=== PATIENT | female | born 1960 | race Caucasian/White ===

== ENCOUNTER 2017-02-09 14:35 | Emergency (ER) | payer MEDICARE ==
[~2017-02-09] VITALS: Ht 157.5 cm; Wt 83.9 kg
[~2017-02-09 14:35] MED LIST: ASPIRIN EC81 MG PO; FUROSEMIDE40 MG PO; IRBESARTAN150 MG PO; ISOSORBIDE MONO60 MG PO; METOPROLOL TART50 MG PO; OMEPRAZOLE20 MG PO; SPIRONOLACTONE25 MG PO
[2017-02-09] MEDS ORDERED: MONTELUKAST SOD10 MG PO (14:58)
[2017-02-09] MEDS ORDERED: LORAZEPAM1 MG PO (14:59)
[2017-02-09] MEDS ORDERED: FLUOXETINE HCL10 M1 PO (14:59)
[2017-02-09] MEDS ORDERED: METOLAZONE5 MG PO (14:59)
[2017-02-09] MEDS ORDERED: IPRAT-ALBUT 0.5-3 ML INH (15:00)
[2017-02-09] MEDS ORDERED: PREDNISONE10 MG PO (19:21)
[2017-02-09] MEDS ORDERED: PULMICORT FLE180 MCG INH (19:29)
[2017-02-09] MEDS ORDERED: PULMICORT0.5 MG/2 M INH (19:29)
--- NOTE | 2017-02-10 07:41 | EKG ---
[facility] [address] [facility] [place] [address] Signed Normal sinus rhythm Normal ECG No previous ECGs available Confirmed by AI ALCANTARA MD ([id number] on 02/10/2017 7:41:35 AM Electronically Signed By: AI ALCANTARA MD 02/10/17 0741 PATIENT NAME: DONNELLVANESSA Electrocardiogram DATE OF : 64 PHYSICIAN: AI ALCANTARA MD REPORT #: [id number] REPORT IS CONFIDENTIAL AND NOT TO BE RELEASED WITHOUT AUTHORIZATION
== END 2017-02-09 19:51 | disposition home or self-care (01) ==
LOC: ED 14:35
DX: J44.1 Chronic obstructive pulmonary disease with (acute) exacerbation (principal); I25.10 Atherosclerotic heart disease of native coronary artery without angina pectoris; I10 Essential (primary) hypertension; F17.200 Nicotine dependence, unspecified, uncomplicated; Z90.710 Acquired absence of both cervix and uterus; Z90.49 Acquired absence of other specified parts of digestive tract; Z88.0 Allergy status to penicillin; Z88.1 Allergy status to other antibiotic agents; Z88.8 Allergy status to other drugs, medicaments and biological substances; Z88.5 Allergy status to narcotic agent; Z90.89 Acquired absence of other organs; Z79.899 Other long term (current) drug therapy; Z79.82 Long term (current) use of aspirin
CPT/HCPCS: 71010; 71260; 80053; 81001; 83605; 83880; 84484; 85025; 85379; 93005; 93010; 94644; 96374; 96375; 99284; J2405; J2930; J7040; Q9967